=== PATIENT | male | born 1975 | race Caucasian/White ===

== ENCOUNTER 2017-02-18 01:15 | Emergency (ER) | payer SELFPAY ==
[2017-02-18 01:49] VITALS: RESP 17; TEMP 98.4; O2SAT 99
[2017-02-18] MEDS ORDERED: Albuterol-Ipratrop 3 mg / 0.5 (3 ml) UD IH STA (01:55)
--- NOTE | 2017-02-18 01:57 | ED PDOC ---
Arrival/HPI - General Time Seen by Provider: 02/18/17 01:51 Historian: Patient - History of Present Illness Narrative History of Present Illness (Text): 02/18/17 01:54 Iain Olmos is a 41 year old male, whose past medical history include asthma and hypertension, who presents to the Emergency department complaining of shortness of breath since yesterday. Patient states he had 2 nebulizer treatments at home with minimal relief. Patient notes symptoms are consistent with previous episodes of asthma. Patient denies any fever, chills, chest pain, nausea, vomiting, diarrhea, urinary symptoms, back pain, neck pain, headache, dizziness, or any other complaints. Time/Duration: Other (yesterday) Symptom Onset: Gradual Symptom Course: Unchanged Activities at Onset: Light Context: Home Past Medical History - Provider Review Nursing Documentation Reviewed: Yes - Infectious Disease Hx of Infectious Diseases: None - Cardiac Hx Cardiac Disorders: Yes Hx Hypertension: Yes - Psychiatric Hx Substance Use: No Family/Social History - Physician Review Nursing Documentation Reviewed: Yes Family/Social History: Unknown Family HX Smoking Status: Never Smoked Hx Alcohol Use: No Hx Substance Use: No Allergies/Home Meds Allergies/Adverse Reactions: Allergies No Known Allergies Allergy (Verified 02/18/17 01:38) Review of Systems - Physician Review All systems were reviewed & negative as marked: Yes - Review of Systems Constitutional: Normal. absent: Fevers Eyes: Normal ENT: Normal Respiratory: SOB. absent: Cough Cardiovascular: Normal. absent: Chest Pain Gastrointestinal: Normal. absent: Abdominal Pain, Diarrhea, Nausea, Vomiting Genitourinary Male: Normal. absent: Dysuria, Frequency, Hematuria, Urinary Output Changes Musculoskeletal: Normal. absent: Back Pain, Neck Pain Skin: Normal. absent: Rash Neurological: Normal. absent: Headache, Dizziness Endocrine: Normal Hemo/Lymphatic: Normal Psychiatric: Normal Physical Exam Vital Signs Reviewed: Yes Vital Signs Temp Pulse Resp BP Pulse Ox 02/18/17 03:43 68 17 122/76 99 02/18/17 01:48 98.4 F 88 17 154/92 H 99 Temperature: Afebrile Blood Pressure: Normal Pulse: Regular Respiratory Rate: Normal Appearance: Positive for: Well-Appearing, Non-Toxic, Comfortable Pain Distress: None Mental Status: Positive for: Alert and Oriented X 3 - Systems Exam Head: Present: Atraumatic, Normocephalic Pupils: Present: PERRL Extroacular Muscles: Present: EOMI Conjunctiva: Present: Normal Mouth: Present: Moist Mucous Membranes Neck: Present: Normal Range of Motion Respiratory/Chest: Present: Wheezes. No: Respiratory Distress, Accessory Muscle Use Cardiovascular: Present: Regular Rate and Rhythm, Normal S1, S2. No: Murmurs Abdomen: Present: Normal Bowel Sounds. No: Tenderness, Distention, Peritoneal Signs Back: Present: Normal Inspection Upper Extremity: Present: Normal Inspection. No: Cyanosis, Edema Lower Extremity: Present: Normal Inspection. No: Edema Neurological: Present: GCS=15, CN II-XII Intact, Speech Normal Skin: Present: Warm, Dry, Normal Color. No: Rashes Psychiatric: Present: Alert, Oriented x 3, Normal Insight, Normal Concentration Medical Decision Making ED Course and Treatment: 02/18/17 01:54 Impression: 41 year old male complaining of shortness of breath since yesterday. Differential Diagnosis included but are not limited to: asthma Plan: -- Duoneb -- Solu-medrol -- Reassess and disposition Progress Notes: 02/18/17 02:53 Pt states he felt itchy after receiving Solu-medrol. Benadryl ordered. 02/18/17 03:30 On re-evaluation, pt states he feel 100% better following medication, states his symptoms have resolved. Patient in agreement with plan to be discharged home. Patient is stable for discharge. Patient was instructed to follow up with physician or return if symptoms worsen or new concerning symptoms arise. - Medication Orders Current Medication Orders: Discontinued Medications Albuterol/Ipratropium (Duoneb 3 Mg/0.5 Mg (3 Ml) Ud) 3 ml IH ONCE STA Stop: 02/18/17 01:56 Last Admin: 02/18/17 02:21 Dose: 3 ml Diphenhydramine HCl (Benadryl) 25 mg IVP ONCE ONE Stop: 02/18/17 02:54 Last Admin: 02/18/17 02:57 Dose: 25 mg IVP Administration Document 02/18/17 02:57 CNR (Rec: 02/18/17 02:57 CNR [id number]) Charges for Administration # of IVP Administrations 1 Methylprednisolone (Solu-Medrol) 125 mg IVP ONCE ONE Stop: 01/14/18 01:56 Last Admin: 02/18/17 02:21 Dose: 125 mg IVP Administration Document 02/18/17 02:21 CNR (Rec: 02/18/17 02:21 CNR [id number]) Charges for Administration # of IVP Administrations 1 - Scribe Statement The provider has reviewed the documentation as recorded by the Karen Valiente Provider Scribe Attestation: All medical record entries made by the Scribe were at my direction and personally dictated by me. I have reviewed the chart and agree that the record accurately reflects my personal performance of the history, physical exam, medical decision making, and the department course for this patient. I have also personally directed, reviewed, and agree with the discharge instructions and disposition. Disposition/Present on Arrival - Present on Arrival Any Indicators Present on Arrival: No History of DVT/PE: No History of Uncontrolled Diabetes: No Urinary Catheter: No History of Decub. Ulcer: No History Surgical Site Infection Following: None - Disposition Have Diagnosis and Disposition been Completed?: Yes Diagnosis: Asthma exacerbation Disposition: HOME/ ROUTINE Disposition Time: 03:34 Patient Plan: Discharge Condition: GOOD Discharge Instructions (ExitCare): Asthma (ED) Additional Instructions: take meds as prescribed/follow up with your doctor this week Prescriptions: Albuterol/Ipratropium [Duoneb 3 MG/3 Ml-0.5 MG/3 Ml 3 Ml] 3 ml IH Q4 PRN #24 neb PRN Reason: Wheezing Albuterol HFA [Ventolin HFA 90 mcg/actuation (8 g)] 2 puff IH [id number] PRN #1 puff PRN Reason: Wheezing Forms: [facility] (Iranian)
[2017-02-18] MEDS ORDERED: DiphenhydrAMINE 50 mg/ml Inj IVP ONE (02:53)
[2017-02-18 03:44] VITALS: BP 122/76; PULSE 68
--- NOTE | 2017-02-18 20:47 | CARD ---
APPROVED REPORT EKG Measurement Heart [id number] <Conclusion> Normal sinus rhythm Normal ECG
== END 2017-02-18 03:47 | disposition home or self-care (01) ==
LOC: ED 01:15
DX: J45.901 Unspecified asthma with (acute) exacerbation (principal)
CPT/HCPCS: 93005; 96374; 96375; 99283; J1200; J2930

== ENCOUNTER 2017-03-05 18:33 | Emergency (ER) | payer OTHER ==
[2017-03-05 18:45] VITALS: BMI 29.6
[2017-03-05 18:49] VITALS: BP 150/97; PULSE 99; RESP 16; TEMP 98.3; O2SAT 98
--- NOTE | 2017-03-05 19:24 | ED PDOC ---
Arrival/HPI - General Chief Complaint: Shortness Of Breath Time Seen by Provider: 03/05/17 19:11 Historian: Patient - History of Present Illness Narrative History of Present Illness (Text): 03/05/17 19:15 Iain Olmos is a 41 year old male, whose past medical history includes Asthma and hypertension, who presents to the emergency department complaining of wheezing and chest congestion for several days. Patient notes that he takes albuterol and uses a nebulizer at home. Patient denies any coughs, nausea, vomiting, diarrhea, leg swelling, recent travels, or any other complaints at this time. PMD: None Time/Duration: < week Symptom Onset: Gradual Symptom Course: Unchanged Severity Level: Mild Activities at Onset: Light Context: Home Past Medical History - Provider Review Nursing Documentation Reviewed: Yes - Infectious Disease Hx of Infectious Diseases: None - Cardiac Hx Cardiac Disorders: Yes Hx Hypertension: Yes - Pulmonary Hx Respiratory Disorders: Yes Hx Asthma: Yes - Neurological Hx Neurological Disorder: No - HEENT Hx HEENT Disorder: No - Renal Hx Renal Disorder: No - Endocrine/Metabolic Hx Endocrine Disorders: No - Hematological/Oncological Hx Blood Disorders: No - Integumentary Hx Dermatological Disorder: No - Musculoskeletal/Rheumatological Hx Musculoskeletal Disorders: No - Gastrointestinal Hx Gastrointestinal Disorders: No - Genitourinary/Gynecological Hx Genitourinary Disorders: No - Psychiatric Hx Psychophysiologic Disorder: No Hx Substance Use: No Family/Social History - Physician Review Nursing Documentation Reviewed: Yes Family/Social History: No Known Family HX Smoking Status: Never Smoked Hx Alcohol Use: Yes Frequency of alcohol use: Socially Hx Substance Use: No Allergies/Home Meds Allergies/Adverse Reactions: Allergies No Known Allergies Allergy (Verified 03/05/17 18:45) Review of Systems - Physician Review All systems were reviewed & negative as marked: Yes - Review of Systems Constitutional: absent: Fevers, Night Sweats Eyes: absent: Vision Changes ENT: Sinus Congestion. absent: Hearing Changes Respiratory: Wheezing. absent: SOB, Cough Cardiovascular: absent: Chest Pain Gastrointestinal: absent: Abdominal Pain Genitourinary Male: absent: Dysuria, Frequency Musculoskeletal: absent: Arthralgias, Back Pain Skin: absent: Rash, Pruritis Neurological: absent: Headache, Dizziness Endocrine: absent: Diaphoresis Hemo/Lymphatic: absent: Adenopathy Psychiatric: absent: Anxiety, Depression Physical Exam Vital Signs Reviewed: Yes Vital Signs Temp Pulse Resp BP Pulse Ox 03/05/17 19:08 98 03/05/17 18:49 98.3 F 99 H 16 150/97 H 98 03/05/17 18:45 98.2 F Temperature: Afebrile Blood Pressure: Normal Pulse: Regular Respiratory Rate: Normal Appearance: Positive for: Well-Appearing, Non-Toxic, Comfortable Pain Distress: None Mental Status: Positive for: Alert and Oriented X 3 - Systems Exam Head: Present: Atraumatic, Normocephalic Pupils: Present: PERRL Extroacular Muscles: Present: EOMI Conjunctiva: Present: Normal Mouth: Present: Moist Mucous Membranes Neck: Present: Normal Range of Motion Respiratory/Chest: Present: Clear to Auscultation, Good Air Exchange. No: Respiratory Distress, Accessory Muscle Use Cardiovascular: Present: Regular Rate and Rhythm, Normal S1, S2. No: Murmurs Abdomen: Present: Normal Bowel Sounds. No: Tenderness, Distention, Peritoneal Signs Back: Present: Normal Inspection Upper Extremity: Present: Normal Inspection. No: Cyanosis, Edema Lower Extremity: Present: Normal Inspection. No: Edema Neurological: Present: GCS=15, CN II-XII Intact, Speech Normal Skin: Present: Warm, Dry, Normal Color. No: Rashes Psychiatric: Present: Alert, Oriented x 3, Normal Insight, Normal Concentration Medical Decision Making ED Course and Treatment: 03/05/17 19:25 Impression: 41 year old male complaining of wheezing and chest congestion for several days. Differential Diagnosis included but are not limited to: Asthma, Bronchitis Plan: -- Chest X-ray -- Duoneb and Prednisone -- Reassess and disposition Prior Visits: Notes and results from previous visits were reviewed. Patient was last seen in the emergency department on 02/18/17 for shortness of breath. Patient was discharged home. Progress Notes: Patient improved with treatment and no longer had symptoms. He was discharged home with PMD f/u and advised to return to the ED if symptoms worsen or any other concern. - Lab Interpretations Lab Results: Lab Results 03/05/17 19:25: Influenza Typ A,B (EIA) Negative for flu a/b - RAD Interpretation Radiology Orders: 03/05/17 19:20 CXR (PA/LAT) [CHEST TWO VIEWS (PA/LAT)] [RAD] Stat - Medication Orders Current Medication Orders: Discontinued Medications Albuterol/Ipratropium (Duoneb 3 Mg/0.5 Mg (3 Ml) Ud) 3 ml IH Q15M MERVIN Stop: 03/05/17 20:01 Last Admin: 03/05/17 19:55 Dose: 3 ml Prednisone (Prednisone Tab) 60 mg PO STAT STA Stop: 03/05/17 19:21 Last Admin: 03/05/17 19:32 Dose: 60 mg - Scribe Statement The provider has reviewed the documentation as recorded by the Karen Love Provider Scribe Attestation: All medical record entries made by the Omairaibedinson were at my direction and personally dictated by me. I have reviewed the chart and agree that the record accurately reflects my personal performance of the history, physical exam, medical decision making, and the department course for this patient. I have also personally directed, reviewed, and agree with the discharge instructions and disposition. Disposition/Present on Arrival - Present on Arrival Any Indicators Present on Arrival: No History of DVT/PE: No History of Uncontrolled Diabetes: No Urinary Catheter: No History of Decub. Ulcer: No History Surgical Site Infection Following: None - Disposition Have Diagnosis and Disposition been Completed?: Yes Diagnosis: Asthma, URI (upper respiratory infection) Disposition: HOME/ ROUTINE Disposition Time: 21:16 Patient Plan: Discharge Condition: IMPROVED Discharge Instructions (ExitCare): Asthma (ED), Upper Respiratory Infection (ED ) Additional Instructions: Mr Olmos, thank you for letting us take care of you today. Your provider was Dr. Castro. You were treated for URI, Asthma. The emergency medical care you received today was directed at your acute symptoms. If you were prescribed any medication, please fill it and take as directed. It may take several days for your symptoms to resolve. Return to the Emergency Department if your symptoms worsen, do not improve, or if you have any other problems. Please contact your doctor or call one of the physicians/clinics you have been referred to that are listed on the Patient Visit Information form that is included in your discharge packet. Bring any paperwork you were given at discharge with you along with any medications you are taking to your follow up visit. Our treatment cannot replace ongoing medical care by a primary care provider (PCP) outside of the emergency department. Thank you for allowing the [facility] team to be part of your care today. If you had an X-Ray or CT scan: A Radiologist will review the ED reading if any change in treatment is needed we will contact you. If you had a blood, urine, or wound culture: It will take several days for the results, if any change in treatment is needed we will contact you. If you had an STI test: It will take 48 hours for the results. Please call after 1 week if you have not heard back. Prescriptions: Albuterol HFA [Ventolin HFA 90 mcg/actuation (8 g)] 2 puff IH Q4 #1 puff predniSONE [predniSONE Tab] 40 mg PO DAILY #8 tab Referrals: [facility] at [facility] [place] [Outside] - Follow up with primary Forms: [facility] (Faroese), WORK NOTE
[2017-03-05] MEDS: Albuterol-Ipratrop 3 mg / 0.5 (3 ml) UD IH SCH ×3 (19:25→19:55)
--- NOTE | 2017-03-06 08:19 | RAD ---
HISTORY: cough r/o pna COMPARISON: No prior. TECHNIQUE: Chest PA and lateral FINDINGS: LUNGS: No active pulmonary disease. PLEURA: No significant pleural effusion identified. No pneumothorax apparent. CARDIOVASCULAR: Normal. OSSEOUS STRUCTURES: No significant abnormalities. VISUALIZED UPPER ABDOMEN: Normal. OTHER FINDINGS: None. IMPRESSION: No active disease.
--- NOTE | 2017-03-06 10:59 | CARD ---
APPROVED REPORT EKG Measurement Heart [id number] [id number] <Conclusion> Normal sinus rhythm Normal ECG
== END 2017-03-05 21:16 | disposition home or self-care (01) ==
LOC: ED 18:33
DX: J45.909 Unspecified asthma, uncomplicated (principal); J06.9 Acute upper respiratory infection, unspecified

== ENCOUNTER 2017-03-31 19:15 | Emergency (ER) | payer SELFPAY ==
[2017-03-31 19:16] VITALS: BMI 29.6
[2017-03-31 19:28] VITALS: RESP 18; TEMP 97.9; O2SAT 100
--- NOTE | 2017-03-31 19:37 | ED PDOC ---
Arrival/HPI - General Chief Complaint: Shortness Of Breath Time Seen by Provider: 03/31/17 19:28 Historian: Patient - History of Present Illness Narrative History of Present Illness (Text): 03/31/17 19:34 42 year old male, with past medical history of hypertension and asthma, presents to the Emergency department complaining of intermittent shortness of breath for past two weeks. Patient informs associated right-sided chest discomfort. Patient informs similar symptoms in the past two months and requests medical attention. Patient denies blood thinner and smoking. Patient denies any fever, chills, nausea, vomiting, abdominal pain or any other complaints. Time/Duration: > week Symptom Onset: Gradual Symptom Course: Unchanged Quality: Tightness Activities at Onset: Light Context: Home Past Medical History - Provider Review Nursing Documentation Reviewed: Yes - Infectious Disease Hx of Infectious Diseases: None - Cardiac Hx Cardiac Disorders: Yes Hx Hypertension: Yes - Pulmonary Hx Respiratory Disorders: Yes Hx Asthma: Yes - Neurological Hx Neurological Disorder: No - HEENT Hx HEENT Disorder: No - Renal Hx Renal Disorder: No - Endocrine/Metabolic Hx Endocrine Disorders: No - Hematological/Oncological Hx Blood Disorders: No - Integumentary Hx Dermatological Disorder: No - Musculoskeletal/Rheumatological Hx Musculoskeletal Disorders: No - Gastrointestinal Hx Gastrointestinal Disorders: No - Genitourinary/Gynecological Hx Genitourinary Disorders: No - Psychiatric Hx Psychophysiologic Disorder: No Hx Substance Use: No - Anesthesia Hx Anesthesia: No Family/Social History - Physician Review Nursing Documentation Reviewed: Yes Family/Social History: No Known Family HX Smoking Status: Never Smoked Hx Alcohol Use: Yes Hx Substance Use: No Allergies/Home Meds Allergies/Adverse Reactions: Allergies No Known Allergies Allergy (Verified 03/31/17 19:25) Review of Systems - Physician Review All systems were reviewed & negative as marked: Yes - Review of Systems Constitutional: Normal. absent: Fevers Eyes: Normal ENT: Normal Respiratory: SOB Cardiovascular: Chest Pain Gastrointestinal: Normal. absent: Abdominal Pain, Diarrhea, Nausea, Vomiting Genitourinary Male: Normal Musculoskeletal: Normal Skin: Normal Neurological: Normal Endocrine: Normal Hemo/Lymphatic: Normal Psychiatric: Normal Physical Exam Vital Signs Reviewed: Yes Vital Signs Temp Pulse Resp BP Pulse Ox 03/31/17 19:27 18 100 03/31/17 19:26 97.9 F 93 H 18 147/91 H 100 Temperature: Afebrile Blood Pressure: Hypertensive Pulse: Regular Respiratory Rate: Normal Appearance: Positive for: Well-Appearing, Non-Toxic, Comfortable Pain Distress: None Mental Status: Positive for: Alert and Oriented X 3 - Systems Exam Head: Present: Atraumatic, Normocephalic Pupils: Present: PERRL Extroacular Muscles: Present: EOMI Conjunctiva: Present: Normal Mouth: Present: Moist Mucous Membranes Neck: Present: Normal Range of Motion Respiratory/Chest: Present: Clear to Auscultation, Good Air Exchange, Other ( reproducible right upper chest wall discomfort.). No: Respiratory Distress, Accessory Muscle Use Cardiovascular: Present: Regular Rate and Rhythm, Normal S1, S2. No: Murmurs Abdomen: Present: Normal Bowel Sounds. No: Tenderness, Distention, Peritoneal Signs Back: Present: Normal Inspection Upper Extremity: Present: Normal Inspection. No: Cyanosis, Edema Lower Extremity: Present: Normal Inspection. No: Edema Neurological: Present: GCS=15, CN II-XII Intact, Speech Normal Skin: Present: Warm, Dry, Normal Color. No: Rashes Psychiatric: Present: Alert, Oriented x 3, Normal Insight, Normal Concentration Medical Decision Making ED Course and Treatment: 03/31/17 19:39 Impression: 42 year old male presents to the Emergency department for shortness of breath and right chest discomfort. Plan: -- EKG -- Labs -- Chest X-ray -- Reassess and disposition Progress Notes: 03/31/17 20:04 Chest X-ray reviewed, shows no infiltrate, no effusion. Clear. 03/31/17 21:28 pain free; all studies neg. Stable for discharge. - Lab Interpretations Lab Results: 03/31/17 19:45 03/31/17 19:45 Lab Results 03/31/17 19:45: Sodium 139, Potassium 3.5 L, Chloride 98, Carbon Dioxide 28, Anion Gap 16, BUN 15, Creatinine 0.9, Est GFR ( Amer) > 60, Est GFR (Non- Af Amer) > 60, Random Glucose 100, Calcium 9.8, Total Bilirubin 0.4, AST 31, ALT 26, Alkaline Phosphatase 67, Troponin I < 0.01, Total Protein 7.1, Albumin 4.1, Globulin 3.0, Albumin/Globulin Ratio 1.4 03/31/17 19:45: D-Dimer, Quantitative < 200 03/31/17 19:45: WBC 8.0, RBC 4.92, Hgb 14.1, Hct 42.3, MCV 86.0, MCH 28.7, MCHC 33.3, RDW 12.3, Plt Count 309, MPV 9.3, Gran % 53.6, Lymph % (Auto) 36.5 H, [place] % (Auto) 8.0 H, Eos % (Auto) 1.6, Baso % (Auto) 0.3, Gran # 4.28, Lymph # ( Auto) 2.9, [place] # (Auto) 0.6, Eos # (Auto) 0.1, Baso # (Auto) 0.02 - RAD Interpretation Radiology Orders: 03/31/17 19:33 CHEST PORTABLE [RAD] Stat [employer] Chair: ED Physician - Scribe Statement The provider has reviewed the documentation as recorded by the Scribe Rubina Nugent. All medical record entries made by the Scribe were at my direction and personally dictated by me. I have reviewed the chart and agree that the record accurately reflects my personal performance of the history, physical exam, medical decision making, and the department course for this patient. I have also personally directed, reviewed, and agree with the discharge instructions and disposition. Disposition/Present on Arrival - Present on Arrival Any Indicators Present on Arrival: No History of DVT/PE: No History of Uncontrolled Diabetes: No Urinary Catheter: No History of Decub. Ulcer: No History Surgical Site Infection Following: None - Disposition Have Diagnosis and Disposition been Completed?: Yes Diagnosis: Chest wall pain Disposition: HOME/ ROUTINE Disposition Time: 21:30 Patient Plan: Discharge Condition: STABLE Discharge Instructions (ExitCare): Chest Pain That Is Not Caused by the Heart ( DC) Referrals: PCP,NO [Primary Care Provider] - Follow up with primary Forms: [facility] (Armenian)
[2017-03-31 20:19] LABS: BASO # 0.02 K/mm3 (0.0-2.0); BASO % 0.3 % (0.0-3.0); EOS # 0.1 (0.0-0.7); EOS % 1.6 % (1.5-5.0); GRAN # 4.28 (1.4-6.5); GRAN % 53.6 % (50.0-68.0); HEMOGLOBIN 14.1 g/dL (14.0-18.0); LYMPH # 2.9 (1.2-3.4); LYMPH % 36.5 % (22.0-35.0); MEAN CORPUSCULAR HEMOGLOBIN 28.7 pg (25.0-35.0); MEAN CORPUSCULAR HGB CONC 33.3 g/dl (31.0-37.0); MEAN PLATELET VOLUME 9.3 fl (7.0-11.0); MONO # 0.6 (0.1-0.6); RBC 4.92 10^6/uL (3.5-6.1); RED CELL DISTRIBUTION WIDTH 12.3 % (11.5-14.5)
[2017-03-31 20:30] LABS: TROPONIN I < 0.01 ng/mL
[2017-03-31 20:58] LABS: ALB/GLOB RATIO 1.4 (1.1-1.8); ALBUMIN 4.1 g/dL (3.0-4.8); ALT/SGPT 26 U/L (7-56); AST/SGOT 31 U/L (17-59); BLOOD UREA NITROGEN 15 mg/dL (7-21); CALCIUM 9.8 mg/dL (8.4-10.5); GFR AFRICAN-AMERICAN > 60; GFR NON-AFRICAN AMERICAN > 60
[2017-03-31 21:33] VITALS: BP 137/88; PULSE 85
--- NOTE | 2017-04-01 09:00 | RAD ---
HISTORY: Chest pain COMPARISON: 03/05/2017. FINDINGS: LUNGS: The lungs are clear. PLEURA: No significant pleural effusion identified, no pneumothorax apparent. CARDIOVASCULAR: Normal. OSSEOUS STRUCTURES: No significant abnormalities. VISUALIZED UPPER ABDOMEN: Normal. OTHER FINDINGS: None. IMPRESSION: No active pulmonary disease.
--- NOTE | 2017-04-01 14:59 | CARD ---
APPROVED REPORT EKG Measurement Heart [id number] <Conclusion> Normal sinus rhythm Normal ECG
== END 2017-03-31 21:35 | disposition home or self-care (01) ==
LOC: ED 19:15
DX: R07.89 Other chest pain (principal); I10 Essential (primary) hypertension

== ENCOUNTER 2017-04-13 20:34 | Observation (INO) | payer OTHER ==
--- NOTE | 2017-04-13 21:08 | ED PDOC ---
Arrival/HPI - General Chief Complaint: Chest Pain Time Seen by Provider: 04/13/17 21:03 Historian: Patient - History of Present Illness Narrative History of Present Illness (Text): 04/13/17 21:05 Iain Olmos is a 42 year old male, whose past medical history includes asthma and hypertension, presents to the emergency department complaining of chest pain. He reports that at 4pm today he had acute onset of chest pressure. He reports that it was different than his asthma tightness and instead felt "like someone was sitting on my chest." Reports remote hx of numbness in hands. Patient denies any fever, chills, shortness of breath, nausea, vomiting, diarrhea, neck pain, headache, dizziness, or any other complaints. 04/13/17 21:54 Time/Duration: < week (2 days) Symptom Onset: Gradual Symptom Course: Unchanged Activities at Onset: Light Context: Home Past Medical History - Provider Review Nursing Documentation Reviewed: Yes - Infectious Disease Hx of Infectious Diseases: None - Cardiac Hx Cardiac Disorders: Yes Hx Hypertension: Yes - Pulmonary Hx Respiratory Disorders: Yes Hx Asthma: Yes - Neurological Hx Neurological Disorder: No - HEENT Hx HEENT Disorder: No - Renal Hx Renal Disorder: No - Endocrine/Metabolic Hx Endocrine Disorders: No - Hematological/Oncological Hx Blood Disorders: No - Integumentary Hx Dermatological Disorder: No - Musculoskeletal/Rheumatological Hx Musculoskeletal Disorders: No - Gastrointestinal Hx Gastrointestinal Disorders: No - Genitourinary/Gynecological Hx Genitourinary Disorders: No - Psychiatric Hx Psychophysiologic Disorder: No Hx Substance Use: No - Anesthesia Hx Anesthesia: No Family/Social History - Physician Review Nursing Documentation Reviewed: Yes Family/Social History: Unknown Family HX Smoking Status: Never Smoked Hx Alcohol Use: Yes Hx Substance Use: No Allergies/Home Meds Allergies/Adverse Reactions: Allergies No Known Allergies Allergy (Verified 03/31/17 19:25) Home Medications: Home Meds Medication Instructions Recorded Confirmed Olmesartan/Hydrochlorothiazide 1 tab PO DAILY 04/13/17 04/13/17 [Benicar Hct 40-12.5 mg Tablet] Review of Systems - Physician Review All systems were reviewed & negative as marked: Yes - Review of Systems Constitutional: Normal Eyes: Normal ENT: Normal Respiratory: Normal. absent: SOB, Cough Cardiovascular: Chest Pain Gastrointestinal: Normal. absent: Abdominal Pain, Diarrhea, Nausea, Vomiting Genitourinary Male: Normal. absent: Dysuria, Frequency, Hematuria, Urinary Output Changes Musculoskeletal: absent: Neck Pain Skin: Normal. absent: Rash Neurological: absent: Headache, Dizziness, Gait Changes Endocrine: Normal Hemo/Lymphatic: Normal Psychiatric: Normal Physical Exam - Physical Exam Narrative Physical Exam (Text): 04/13/17 21:08 Constitutional: No acute distress. Head: Normocephalic. Atraumatic. Eyes: PERRL. ENT: Moist mucous membranes. Neck: Supple. Cardiovascular: Regular rate. Chest: no chest tenderness. Respiratory: Clear to auscultation bilaterally. GI: Soft. Nontender. Nondistended. Back: No CVA tenderness. Musculoskeletal: No tenderness or swelling of extremities. Normal ROM. Skin: No rash. Neurologic: Alert, no focal deficit. 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 Risk factors include htn. Plan: -- Chest X-ray -- Cardiac Enzymes -- D-Dimer -- Labs -- Duoneb -- Aspirin -- Reassess and disposition Prior Visits: Notes and results from previous visits were reviewed. Patient was last seen in the emergency department on 03/31/17 for shortness of breath. Pt was discharged. Progress Notes: EKG reviewed, shows NSR at 93 bpm. NST/T wave changes. 04/13/17 21:55 D-dimer negative. Trop negative. Observation for chest pain under hospitalist. - Lab Interpretations Lab Results: 04/13/17 21:00 04/13/17 21:00 Lab Results 04/13/17 21:00: Sodium 140, Potassium 3.4 L, Chloride 100, Carbon Dioxide 30, Anion Gap 14, BUN 20, Creatinine 1.0, Est GFR ( Amer) > 60, Est GFR (Non- Af Amer) > 60, Random Glucose 102, Calcium 9.8, Total Bilirubin 0.4, AST 39, ALT 37, Alkaline Phosphatase 71, Total Creatine Kinase 169, Troponin I < 0.01, NT-Pro-B Natriuret Pep < 11.1, Total Protein 7.3, Albumin 4.2, Globulin 3.1, Albumin/Globulin Ratio 1.4 04/13/17 21:00: D-Dimer, Quantitative < 200 04/13/17 21:00: WBC 9.0, RBC 4.93, Hgb 14.1, Hct 42.4, MCV 86.0, MCH 28.6, MCHC 33.3, RDW 12.5, Plt Count 319, MPV 9.3, Gran % 57.3, Lymph % (Auto) 34.0, Ashley % (Auto) 7.6 H, Eos % (Auto) 1.0 L, Baso % (Auto) 0.1, Gran # 5.14, Lymph # ( Auto) 3.1, Ashley # (Auto) 0.7 H, Eos # (Auto) 0.1, Baso # (Auto) 0.01 - RAD Interpretation Radiology Orders: 04/13/17 21:04 CHEST PORTABLE [RAD] Stat - Medication Orders Current Medication Orders: Discontinued Medications Albuterol/Ipratropium (Duoneb 3 Mg/0.5 Mg (3 Ml) Ud) 3 ml IH Q15M MERVIN Stop: 04/13/17 21:46 Last Admin: 04/13/17 21:30 Dose: 3 ml Aspirin (Aspirin Chewable) 324 mg PO STAT STA Stop: 04/13/17 21:05 Last Admin: 04/13/17 21:38 Dose: 324 mg - Scribe Statement The provider has reviewed the documentation as recorded by the Omairaibedinson Pagan All medical record entries made by the Karen were at my direction and personally dictated by me. I have reviewed the chart and agree that the record accurately reflects my personal performance of the history, physical exam, medical decision making, and the department course for this patient. I have also personally directed, reviewed, and agree with the discharge instructions and disposition. Disposition/Present on Arrival - Present on Arrival Any Indicators Present on Arrival: No History of DVT/PE: No History of Uncontrolled Diabetes: No Urinary Catheter: No History of Decub. Ulcer: No History Surgical Site Infection Following: None - Disposition Have Diagnosis and Disposition been Completed?: Yes Diagnosis: Chest pain Disposition: HOSPITALIZED Disposition Time: 21:56 Patient Plan: Observation Patient Problems: Current Active Problems Problem Status Onset Chest pain Acute Condition: FAIR Discharge Instructions (ExitCare): Chest Pain (ED) Referrals: Zaki Lu, [Primary Care Provider] - Follow up with primary Forms: [facility] ([place])
[2017-04-13 21:14] LABS: BASO # 0.01 K/mm3 (0.0-2.0); BASO % 0.1 % (0.0-3.0); EOS # 0.1 (0.0-0.7); GRAN # 5.14 (1.4-6.5); GRAN % 57.3 % (50.0-68.0); HEMOGLOBIN 14.1 g/dL (14.0-18.0); LYMPH # 3.1 (1.2-3.4); MEAN CORPUSCULAR HEMOGLOBIN 28.6 pg (25.0-35.0); MEAN CORPUSCULAR HGB CONC 33.3 g/dl (31.0-37.0); MEAN PLATELET VOLUME 9.3 fl (7.0-11.0); MONO # 0.7 (0.1-0.6); MONO % 7.6 % (1.0-6.0); RBC 4.93 10^6/uL (3.5-6.1); RED CELL DISTRIBUTION WIDTH 12.5 % (11.5-14.5)
[2017-04-13] MEDS: Albuterol-Ipratrop 3 mg / 0.5 (3 ml) UD IH SCH ×2 (21:15→21:30)
[2017-04-13 21:45] LABS: ALB/GLOB RATIO 1.4 (1.1-1.8); ALBUMIN 4.2 g/dL (3.0-4.8); ALT/SGPT 37 U/L (7-56); AST/SGOT 39 U/L (17-59); BLOOD UREA NITROGEN 20 mg/dL (7-21); CALCIUM 9.8 mg/dL (8.4-10.5); GFR AFRICAN-AMERICAN > 60; GFR NON-AFRICAN AMERICAN > 60
[2017-04-13 21:55] LABS: TROPONIN I < 0.01 ng/mL
[2017-04-13 21:56] LABS: B-TYPE NATRIURETIC PEPTIDE < 11.1 pg/mL (0-450)
[2017-04-13 22:23] VITALS: O2SAT 99
[2017-04-13] MEDS ORDERED: Potassium Chloride 20 mEq ER Tab PO STA (22:39)
[2017-04-13] MEDS ORDERED: Albuterol 0.083% Inhal Sol (2.5 mg/3 mL) UD IH PRN (22:44)
[2017-04-13 23:28] LABS: HDL CHOLESTEROL 39 mg/dL (29-60)
[2017-04-13 23:39] LABS: LDL CHOLESTEROL 90 mg/dL (0-129)
[2017-04-14 01:09] VITALS: BMI 32.1
--- NOTE | 2017-04-14 02:20 | CP.PCM.HP ---
History of Present Illness - History of Present Illness History of Present Illness: CC; Chest pain, numbness and tingling HPI: 42 M with a past medical history of HTN and asthma presented to [facility] ED with complaints of intermittent chest pains unrelated to exertion. Pt stated that his symptoms began approximately 3 weeks ago where sharp stabbing substernal chest pain would present and would last for a few minutes, without any triggers or exacerbating factors. The pain did not radiate. Pt noted that lying flat would at times alleviate his chest pain. His pain is not reproducible upon palpation. Pt admits to poor diet. He denied any recent unusual stressors. Pt denied any sour taste in the back of his mouth. Pt also has complaints of numbness/tingling in his fingers and toes that recently began within the past few days. He denied any recent trauma. Patient denies any fever , chills, shortness of breath, nausea, vomiting, diarrhea, neck pain, headache, dizziness, or any other complaints. 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 in [place], [place] last seen 6 mo ago no change in meds Present on Admission - Present on Admission Any Indicators Present on Admission: No Review of Systems - Review of Systems Review of Systems: as per HPI otherwise negative Past Patient History - Infectious Disease Hx of Infectious Diseases: None - Past Social History Smoking Status: Former Smoker - CARDIAC Hx Cardiac Disorders: Yes Hx Hypertension: Yes - PULMONARY Hx Respiratory Disorders: Yes Hx Asthma: Yes - NEUROLOGICAL Hx Neurological Disorder: No - HEENT Hx HEENT Problems: No - RENAL Hx Chronic Kidney Disease: No - ENDOCRINE/METABOLIC Hx Endocrine Disorders: No - HEMATOLOGICAL/ONCOLOGICAL Hx Blood Disorders: No - INTEGUMENTARY Hx Dermatological Problems: No - MUSCULOSKELETAL/RHEUMATOLOGICAL Hx Falls: No - GASTROINTESTINAL Hx Gastrointestinal Disorders: No - GENITOURINARY/GYNECOLOGICAL Hx Genitourinary Disorders: No - PSYCHIATRIC Hx Psychophysiologic Disorder: No Hx Substance Use: No - SURGICAL HISTORY Hx Surgeries: No - ANESTHESIA Hx Anesthesia: No Meds Allergies/Adverse Reactions: Allergies Allergy/AdvReac Type Severity Reaction Status Date / Time No Known Allergies Allergy Verified 03/31/17 19:25 Physical Exam - Constitutional Appears: No Acute Distress - Head Exam Head Exam: ATRAUMATIC, NORMAL INSPECTION, NORMOCEPHALIC - Eye Exam Eye Exam: EOMI, Normal appearance, PERRL Pupil Exam: NORMAL ACCOMODATION, PERRL - ENT Exam ENT Exam: Mucous Membranes Moist, Normal Exam - Respiratory Exam Respiratory Exam: Clear to Auscultation Bilateral, NORMAL BREATHING PATTERN - Cardiovascular Exam Cardiovascular Exam: REGULAR RHYTHM, +S1, +S2 - GI/Abdominal Exam GI & Abdominal Exam: Normal Bowel Sounds, Soft. absent: Tenderness - Extremities Exam Extremities exam: Positive for: normal inspection - Back Exam Back exam: NORMAL INSPECTION - Neurological Exam Neurological exam: Alert, CN II-XII Intact, Normal Gait, Oriented x3, Reflexes Normal - Psychiatric Exam Psychiatric exam: Normal Affect, Normal Mood - Skin Skin Exam: Dry, Intact, Normal Color, Warm Results - Vital Signs Recent Vital Signs: Last Vital Signs Temp 98.2 F 04/14/17 00:56 Pulse 99 H 04/14/17 00:56 Resp 18 04/14/17 00:56 BP 148/93 H 04/14/17 00:56 Pulse Ox 99 04/13/17 22:22 - Labs Result Diagrams: 04/13/17 21:00 04/13/17 21:00 Labs: Laboratory Results - last 24 hr 04/13/17 04/13/17 23:00 23:00 Triglycerides 149 Cholesterol 151 LDL Cholesterol Direct 90 HDL Cholesterol 39 TSH 3rd Generation 3.90 Assessment & Plan - Assessment and Plan (Free Text) Assessment: 42 M with a past medical history of HTN and asthma presented to [facility] ED with complaints of intermittent chest pains, admitted to [facility] for observation to rule out ACS. Chest pain r/o ACS vs GERD vs msk asa in ED motrin prn pain trop negative x1, continue to trend EKG demonstrated NSR without ST changes, Serial EKGs lipid panel tsh Echo Cardiology Consulted Dr. Ansari HTN stable continue home meds continue to monitor Asthma Duonebs prn currently stable Hypokalemia supplemented continue to monitor and replete as needed GI ppx pepcid DVT ppx ambulatory SCDs Seen reviewed and discussed with Dr. Nehemias Pandey
[2017-04-14 07:11] LABS: BASO # 0.02 K/mm3 (0.0-2.0); BASO % 0.2 % (0.0-3.0); EOS # 0.1 (0.0-0.7); EOS % 0.8 % (1.5-5.0); GRAN # 5.07 (1.4-6.5); GRAN % 59.9 % (50.0-68.0); HEMOGLOBIN 14.4 g/dL (14.0-18.0); LYMPH # 2.5 (1.2-3.4); MEAN CELL VOLUME 86.6 fl (80.0-105.0); MEAN CORPUSCULAR HEMOGLOBIN 28.8 pg (25.0-35.0); MEAN CORPUSCULAR HGB CONC 33.3 g/dl (31.0-37.0); MEAN PLATELET VOLUME 9.4 fl (7.0-11.0); MONO # 0.8 (0.1-0.6); MONO % 9.1 % (1.0-6.0); RED CELL DISTRIBUTION WIDTH 12.7 % (11.5-14.5); WHITE BLOOD COUNT 8.5 10^3/ul (4.5-11.0)
[2017-04-14 07:29] LABS: ALB/GLOB RATIO 1.3 (1.1-1.8); ALBUMIN 4.1 g/dL (3.0-4.8); ALT/SGPT 41 U/L (7-56); AST/SGOT 35 U/L (17-59); BLOOD UREA NITROGEN 18 mg/dL (7-21); CALCIUM 9.8 mg/dL (8.4-10.5); GFR AFRICAN-AMERICAN > 60; GFR NON-AFRICAN AMERICAN > 60
[2017-04-14 07:42] LABS: TROPONIN I < 0.01 ng/mL
[2017-04-14] MEDS: Albuterol-Ipratrop 3 mg / 0.5 (3 ml) UD IH SCH ×3 (07:49→15:33)
--- NOTE | 2017-04-14 09:53 | RAD ---
HISTORY: Pleuritic chest pain. COMPARISON: 03/31/2017 FINDINGS: LUNGS: No active pulmonary disease. PLEURA: No significant pleural effusion identified, no pneumothorax apparent. CARDIOVASCULAR: No radiographic findings to suggest acute or significant cardiovascular disease. OSSEOUS STRUCTURES: No significant abnormalities. VISUALIZED UPPER ABDOMEN: Normal. OTHER FINDINGS: None. IMPRESSION: No active disease. No significant interval change compared to the prior examination(s).
--- NOTE | 2017-04-14 11:10 | CP.PCM.DIS ---
<Narinder Moraes - Last Filed: 04/14/17 14:41> Provider - Provider Date of Admission: 04/13/17 21:58 Attending physician: Jacklyn Bruner MD Primary care physician: Zaki Profile Required Consults: Cardio: Elan Time Spent in preparation of Discharge (in minutes): 25 Diagnosis - Discharge Diagnosis (1) HTN (hypertension) Status: Chronic Priority: High (2) Asthma Status: Chronic Priority: Medium (3) Chest pain Status: Resolved Priority: High Hospital Course - Lab Results Lab Results: Most Recent Lab Values WBC 8.5 10^3/ul (4.5-11.0) 04/14/17 06:30 RBC 5.00 10^6/uL (3.5-6.1) 04/14/17 06:30 Hgb 14.4 g/dL (14.0-18.0) 04/14/17 06:30 Hct 43.3 % (42.0-52.0) 04/14/17 06:30 MCV 86.6 fl (80.0-105.0) 04/14/17 06:30 MCH 28.8 pg (25.0-35.0) 04/14/17 06:30 MCHC 33.3 g/dl (31.0-37.0) 04/14/17 06:30 RDW 12.7 % (11.5-14.5) 04/14/17 06:30 Plt Count 316 10^3/uL (120.0-450.0) 04/14/17 06:30 MPV 9.4 fl (7.0-11.0) 04/14/17 06:30 Gran % 59.9 % (50.0-68.0) 04/14/17 06:30 Lymph % (Auto) 30.0 % (22.0-35.0) 04/14/17 06:30 Sevier % (Auto) 9.1 % (1.0-6.0) H 04/14/17 06:30 Eos % (Auto) 0.8 % (1.5-5.0) L 04/14/17 06:30 Baso % (Auto) 0.2 % (0.0-3.0) 04/14/17 06:30 Gran # 5.07 (1.4-6.5) 04/14/17 06:30 Lymph # (Auto) 2.5 (1.2-3.4) 04/14/17 06:30 Sevier # (Auto) 0.8 (0.1-0.6) H 04/14/17 06:30 Eos # (Auto) 0.1 (0.0-0.7) 04/14/17 06:30 Baso # (Auto) 0.02 K/mm3 (0.0-2.0) 04/14/17 06:30 D-Dimer, Quantitative < 200 ng/mL (0-243) 04/13/17 21:00 Sodium 139 mmol/L (132-148) 04/14/17 06:30 Potassium 3.9 mmol/L (3.6-5.0) 04/14/17 06:30 Chloride 100 mmol/L (98-107) 04/14/17 06:30 Carbon Dioxide 29 mmol/L (21-33) 04/14/17 06:30 Anion Gap 13 (10-20) 04/14/17 06:30 BUN 18 mg/dL (7-21) 04/14/17 06:30 Creatinine 0.9 mg/dl (0.8-1.5) 04/14/17 06:30 Est GFR ( Amer) > 60 04/14/17 06:30 Est GFR (Non-Af Amer) > 60 04/14/17 06:30 Random Glucose 99 mg/dL (70-110) 04/14/17 06:30 Calcium 9.8 mg/dL (8.4-10.5) 04/14/17 06:30 Total Bilirubin 0.7 mg/dL (0.2-1.3) 04/14/17 06:30 AST 35 U/L (17-59) 04/14/17 06:30 ALT 41 U/L (7-56) 04/14/17 06:30 Alkaline Phosphatase 64 U/L (38-126) 04/14/17 06:30 Total Creatine Kinase 169 U/L (35-230) 04/13/17 21:00 Troponin I < 0.01 ng/mL 04/14/17 06:30 NT-Pro-B Natriuret Pep < 11.1 pg/mL (0-450) 04/13/17 21:00 Total Protein 7.1 g/dL (5.8-8.3) 04/14/17 06:30 Albumin 4.1 g/dL (3.0-4.8) 04/14/17 06:30 Globulin 3.0 gm/dL 04/14/17 06:30 Albumin/Globulin Ratio 1.3 (1.1-1.8) 04/14/17 06:30 Triglycerides 149 mg/dL (35-160) 04/13/17 23:00 Cholesterol 151 mg/dL (130-200) 04/13/17 23:00 LDL Cholesterol Direct 90 mg/dL (0-129) 04/13/17 23:00 HDL Cholesterol 39 mg/dL (29-60) 04/13/17 23:00 TSH 3rd Generation 3.90 mIU/mL (0.46-4.68) 04/13/17 23:00 - Hospital Course Hospital Course: This is a 42 yo M with PMH of HTN and asthma presented to [facility] ED with complaints of intermittent, non-reproducible chest pains unrelated to exertion. Pt stated that his symptoms began approximately 3 weeks ago where sharp stabbing substernal chest pain would present and would last for a few minutes, without any triggers or exacerbating factors. The pain did not radiate. Pt noted that lying flat would at times alleviate his chest pain, but denies any other alleviating factors. 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 Today, he reports relief of all symptoms, and denies any current symptoms, including chest pain, shortness of breath, nausea, or emesis. All troponins have been negative, his EKG was unremarkable, and he was cleared by Cardiology to be discharged. An echo was obtained, pending official read, and patient can follow up with Cardio as an outpatient for the results. Patient was instructed to resume all home medications, to establish himself with a PMD and/or follow up at the [facility] at [facility] within 1 week of discharge (Card for clinic provided). He expressed understanding and agreement with these instructions, and had no further questions, so he was discharged home. Patient seen, reviewed, and discussed with attending, Dr. Wagoner. Discharge Exam - Head Exam Head Exam: ATRAUMATIC, NORMAL INSPECTION, NORMOCEPHALIC - Eye Exam Eye Exam: EOMI, Normal appearance. absent: Conjunctival injection, Scleral icterus Pupil Exam: absent: Irregular, Unequal - ENT Exam ENT Exam: Mucous Membranes Moist - Neck Exam Neck exam: Full Rom - Respiratory Exam Respiratory Exam: Clear to PA & Lateral, NORMAL BREATHING PATTERN, UNREMARKABLE. absent: Accessory Muscle Use, Chest Wall Tenderness, Decreased Breath Sounds, Rales, Rhonchi, Wheezes, Respiratory Distress - Cardiovascular Exam Cardiovascular Exam: REGULAR RHYTHM, RRR, +S1, +S2. absent: Bradycardia, Tachycardia, Irregular Rhythm, JVD, +S4 - GI/Abdominal Exam GI & Abdominal Exam: Normal Bowel Sounds, Soft, Unremarkable. absent: Firm, Guarding, Rebound, Rigid, Tenderness - Extremities Exam Additional comments: normal inspection, no pitting edema or tenderness bilaterally, no gross asymmetry of bilateral LE - Neurological Exam Neurological exam: Alert, Oriented x3 - Psychiatric Exam Psychiatric exam: Normal Affect, Normal Mood - Skin Skin Exam: Dry, Intact, Normal Color, Warm Discharge Plan - Follow Up Plan Condition: FAIR Disposition: HOME/ ROUTINE Additional Instructions: Please resume all home medications and take as previously prescribed. Please establish yourself and followup with a PMD within 1 week of discharge, or follow up at the [facility] clinic in the hospital in 1 week. outpatient stress test per PMD. Please return to the hospital if you experience new or concerning symptoms. Referrals: Zaki Lu, [Primary Care Provider] - [facility] at [facility] [Outside] <Jody Wagoner - Last Filed: 04/14/17 15:22> Provider - Provider Date of Admission: 04/13/17 21:58 Attending physician: Jacklyn Bruner MD Primary care physician: Zaki Jean Required Hospital Course - Lab Results Lab Results: Most Recent Lab Values WBC 8.5 10^3/ul (4.5-11.0) 04/14/17 06:30 RBC 5.00 10^6/uL (3.5-6.1) 04/14/17 06:30 Hgb 14.4 g/dL (14.0-18.0) 04/14/17 06:30 Hct 43.3 % (42.0-52.0) 04/14/17 06:30 MCV 86.6 fl (80.0-105.0) 04/14/17 06:30 MCH 28.8 pg (25.0-35.0) 04/14/17 06:30 MCHC 33.3 g/dl (31.0-37.0) 04/14/17 06:30 RDW 12.7 % (11.5-14.5) 04/14/17 06:30 Plt Count 316 10^3/uL (120.0-450.0) 04/14/17 06:30 MPV 9.4 fl (7.0-11.0) 04/14/17 06:30 Gran % 59.9 % (50.0-68.0) 04/14/17 06:30 Lymph % (Auto) 30.0 % (22.0-35.0) 04/14/17 06:30 Sevier % (Auto) 9.1 % (1.0-6.0) H 04/14/17 06:30 Eos % (Auto) 0.8 % (1.5-5.0) L 04/14/17 06:30 Baso % (Auto) 0.2 % (0.0-3.0) 04/14/17 06:30 Gran # 5.07 (1.4-6.5) 04/14/17 06:30 Lymph # (Auto) 2.5 (1.2-3.4) 04/14/17 06:30 Sevier # (Auto) 0.8 (0.1-0.6) H 04/14/17 06:30 Eos # (Auto) 0.1 (0.0-0.7) 04/14/17 06:30 Baso # (Auto) 0.02 K/mm3 (0.0-2.0) 04/14/17 06:30 D-Dimer, Quantitative < 200 ng/mL (0-243) 04/13/17 21:00 Sodium 139 mmol/L (132-148) 04/14/17 06:30 Potassium 3.9 mmol/L (3.6-5.0) 04/14/17 06:30 Chloride 100 mmol/L (98-107) 04/14/17 06:30 Carbon Dioxide 29 mmol/L (21-33) 04/14/17 06:30 Anion Gap 13 (10-20) 04/14/17 06:30 BUN 18 mg/dL (7-21) 04/14/17 06:30 Creatinine 0.9 mg/dl (0.8-1.5) 04/14/17 06:30 Est GFR ( Amer) > 60 04/14/17 06:30 Est GFR (Non-Af Amer) > 60 04/14/17 06:30 Random Glucose 99 mg/dL (70-110) 04/14/17 06:30 Calcium 9.8 mg/dL (8.4-10.5) 04/14/17 06:30 Total Bilirubin 0.7 mg/dL (0.2-1.3) 04/14/17 06:30 AST 35 U/L (17-59) 04/14/17 06:30 ALT 41 U/L (7-56) 04/14/17 06:30 Alkaline Phosphatase 64 U/L (38-126) 04/14/17 06:30 Total Creatine Kinase 169 U/L (35-230) 04/13/17 21:00 Troponin I < 0.01 ng/mL 04/14/17 13:20 NT-Pro-B Natriuret Pep < 11.1 pg/mL (0-450) 04/13/17 21:00 Total Protein 7.1 g/dL (5.8-8.3) 04/14/17 06:30 Albumin 4.1 g/dL (3.0-4.8) 04/14/17 06:30 Globulin 3.0 gm/dL 04/14/17 06:30 Albumin/Globulin Ratio 1.3 (1.1-1.8) 04/14/17 06:30 Triglycerides 149 mg/dL (35-160) 04/13/17 23:00 Cholesterol 151 mg/dL (130-200) 04/13/17 23:00 LDL Cholesterol Direct 90 mg/dL (0-129) 04/13/17 23:00 HDL Cholesterol 39 mg/dL (29-60) 04/13/17 23:00 TSH 3rd Generation 3.90 mIU/mL (0.46-4.68) 04/13/17 23:00 Attending/Attestation - Attestation I have personally seen and examined this patient.: Yes I have fully participated in the care of the patient.: Yes I have reviewed all pertinent clinical information, including history, physical exam and plan: Yes Notes (Text): 04/14/17 15:20 attending note; Patient seen and examined with resident. Patient was also seen by Dr. Dietz finish repairer. Patient is a 42-year-old male admitted with substernal chest pain. EKG normal. Cardiac enzymes negative. Echocardiogram prelim normal. Case discussed with finish repairer in detail. Patient can be discharged home. Outpatient stress test per PMD as needed. Aspirin when necessary. Continue hypertension medication. Patient will follow up with PMD Dr. heredia. [facility] clinic information was also given.
[2017-04-14 12:23] VITALS: BP 134/78; RESP 20; TEMP 98.7
[2017-04-14 15:58] VITALS: PULSE 83
--- NOTE | 2017-04-14 16:26 | CARD ---
APPROVED REPORT EXAM: Two-dimensional and M-mode echocardiogram with Doppler and color Doppler. INDICATION 2D DIMENSIONS Left Atrium (2D)3.3 (1.6-4.0cm)IVSd0.9 (0.7-1.1cm) LVDd4.1 (3.9-5.9cm)PWd0.8 (0.7-1.1cm) LVDs2.8 (2.5-4.0cm)FS (%) 31.0 % LVEF (%)59.2 (>50%) M-Mode DIMENSIONS Aortic Root3.10 (2.2-3.7cm)Aortic Cusp Exc.1.90 (1.5-2.0cm) Aortic Valve AoV Peak Dztxjozb738.0cm/Rafa Peak GR.7mmHg Mitral Valve MV E Hhrtxqpv75.0cm/sMV A Ykopfecx19.0cm/sE/A ratio1.4 TDI Lateral E' Peak V17.80cm/sMedial E' Peak V7.02cm/sE/Lateral E'3.9 E/Medial E'9.8 Tricuspid Valve TR Peak Ixvbtpaf127iw/sRAP [id number] Peak Gr.22mmHg [id number] LEFT VENTRICLE The left ventricle is normal size. There is normal left ventricular wall thickness. The left ventricular function is normal. The left ventricular ejection fraction is within the normal range. There is normal LV segmental wall motion. The left ventricular diastolic function is normal. RIGHT VENTRICLE The right ventricle is normal size. There is normal right ventricular wall thickness. The right ventricular systolic function is normal. ATRIA The left atrium size is normal. The right atrium size is normal. AORTIC VALVE The aortic valve is normal in structure. No aortic regurgitation is present. MITRAL VALVE The mitral valve is normal in structure. There is no mitral valve regurgitation noted. TRICUSPID VALVE The tricuspid valve is normal in structure. There is no tricuspid valve regurgitation noted. GREAT VESSELS The aortic root is normal in size. The IVC is normal in size and collapses >50% with inspiration. <Conclusion> The left ventricle is normal size. There is normal left ventricular wall thickness. The left ventricular function is normal. The left ventricular ejection fraction is within the normal range. There is normal LV segmental wall motion. The left ventricular diastolic function is normal. Consider a small PFO
--- NOTE | 2017-04-14 16:51 | CARD ---
APPROVED REPORT EKG Measurement Heart [id number] <Conclusion> Normal sinus rhythm Normal ECG
--- NOTE | 2017-04-15 01:08 | CON ---
DATE: 04/14/2017 LOCATION: The patient is in room 260, bed 2. This consult is being done on behalf of Dr. Ansari whom I am covering. REASON FOR CONSULTATION: Chest pain. HISTORY OF PRESENT ILLNESS: A 42-year-old male known to have hypertension and asthma, has been getting treatment. He states for the last 2 weeks he is getting off and on sharp chest pain mostly over the chest. He states it is a stabbing type of pain, got worse by deep inspiration, has no relation to exertion. Pain is intermittent, lasting and while I was examining the patient, he states he does not have any chest pain now, even on deep inspiration. Pain has improved. Patient lying flat in bed without chest pain, shortness of breath, palpitation. PAST MEDICAL HISTORY: Positive for hypertension and asthma. SOCIAL HISTORY: Denies smoking. Denies any drugs. ALLERGIES: DENIES ANY ALLERGIES. FAMILY HISTORY: Positive for diabetes and hypertension. MEDICATIONS: Patient is on Benicar 40/12.5 mg daily and Ventolin. REVIEW OF SYSTEMS: All the systems are reviewed. Positive mentioned in the history, otherwise negative. PHYSICAL EXAMINATION: VITAL SIGNS: Blood pressure 134/78, respirations 20, pulse 95, temperature 98.7. HEENT: Head is normocephalic. Eyes: Pupils normal. Conjunctivae normal. Nose and throat normal. NECK: JVP low. Carotids are equal. THORAX: AP diameter normal. LUNGS: Clear. CARDIOVASCULAR: S1 and S2. ABDOMEN: Soft, nontender. No organomegaly. Bowel sounds normal. EXTREMITIES: No clubbing. No cyanosis. LABORATORY DATA: WBC 8.5, hemoglobin 14.4, hematocrit 43.3, platelet 316. Sodium 139, potassium 3.9, BUN 18, creatinine 0.9, troponin x3 negative. TSH 3.90. Triglyceride 149, cholesterol 151, LDL 90, HDL 39. DIAGNOSTIC DATA: EKG showed regular sinus rhythm. Chest x-ray, no acute disease. DIAGNOSES: Chest pain, atypical pain, mostly musculoskeletal, it was only on deep inspiration and now it was sharp and it was also a time of pain. He states he had this local tenderness as well, but no other pain, pain has resolved; hypertension; history of asthma. PLAN: Patient is going to have echo today and patient is advised to have a nuclear stress test as outpatient although patient's chest pain is a musculoskeletal type and has totally relieved. Patient and understand the plan and we will follow. Jacklyn Dietz MD
== END 2017-04-14 16:54 | disposition home or self-care (01) ==
LOC: ED 20:34 → ERH 21:58 → 2RNO 23:48
PROVIDERS: ADMIT Internal Medicine; ATTEND Internal Medicine
DX: R07.89 Other chest pain (principal); E87.6 Hypokalemia; I10 Essential (primary) hypertension; J45.909 Unspecified asthma, uncomplicated; Z87.891 Personal history of nicotine dependence; Z82.49 Family history of ischemic heart disease and other diseases of the circulatory system; Z83.3 Family history of diabetes mellitus
CPT/HCPCS: 36415; 71045; 80053; 80061; 82550; 83036; 83880; 84443; 84484; 85025; 85378; 93005; 93306; 94640; 99285; G0378

== ENCOUNTER 2017-04-23 14:24 | Emergency (ER) | payer MEDICAID, OTHER ==
[2017-04-23 14:25] VITALS: BMI 32.1
[2017-04-23 14:42] VITALS: TEMP 99.5
--- NOTE | 2017-04-23 15:06 | ED PDOC ---
Arrival/HPI - General Chief Complaint: Back Pain Time Seen by Provider: 04/23/17 14:34 Historian: Patient, Spouse - History of Present Illness Narrative History of Present Illness (Text): 04/23/17 14:58 Pt is a 42 year old male with a PMH of chest pain and HTN who was admitted 04/13 for CARDS workup s/p severw chest pain, presents today for severe low back and neck pain x 2 days, rated 8/10. He describes the pain as starting in the neck and low back and referring down the left arm and left foot causing a tingling and burning sensation. Pt reports positional association; LBP worse on standing, and left hand while sleeping with head rotated to the right. Denies headache, chest pain, shortness of breath, trauma or previous episode. Pt does not have a PCP and only has [facility]. Pt continues to take medication for his blood pressure as prescribed. 04/24/17 21:08 Time/Duration: < week Symptom Onset: Sudden Symptom Course: Unchanged Quality: Pressure Severity Level: 8 Activities at Onset: Sleeping Context: Standing, Walking, Home Past Medical History - Provider Review Nursing Documentation Reviewed: Yes - Travel History Have you recently traveled outside [place] w/in the past 3 mons?: No - Infectious Disease Hx of Infectious Diseases: None - Cardiac Hx Cardiac Disorders: Yes Hx Hypertension: Yes - Pulmonary Hx Respiratory Disorders: Yes Hx Asthma: Yes - Neurological Hx Neurological Disorder: No - HEENT Hx HEENT Disorder: No - Renal Hx Renal Disorder: No - Endocrine/Metabolic Hx Endocrine Disorders: No - Hematological/Oncological Hx Blood Disorders: No - Integumentary Hx Dermatological Disorder: No - Musculoskeletal/Rheumatological Hx Falls: No - Gastrointestinal Hx Gastrointestinal Disorders: No - Genitourinary/Gynecological Hx Genitourinary Disorders: No - Psychiatric Hx Psychophysiologic Disorder: No Hx Substance Use: No - Anesthesia Hx Anesthesia: No Family/Social History - Physician Review Nursing Documentation Reviewed: Yes Family/Social History: Unknown Family HX Smoking Status: Former Smoker Hx Alcohol Use: Yes Hx Substance Use: No Allergies/Home Meds Allergies/Adverse Reactions: Allergies No Known Allergies Allergy (Verified 04/23/17 14:42) Home Medications: Home Meds Medication Instructions Recorded Confirmed Olmesartan/Hydrochlorothiazide 1 tab PO DAILY 04/13/17 04/23/17 [Benicar Hct 40-12.5 mg Tablet] Review of Systems - Physician Review All systems were reviewed & negative as marked: Yes - Review of Systems Constitutional: Normal Eyes: Normal ENT: Normal Respiratory: Normal Cardiovascular: Normal Gastrointestinal: Normal Genitourinary Male: Normal Musculoskeletal: Back Pain, Neck Pain Skin: Normal Neurological: Normal Endocrine: Normal Hemo/Lymphatic: Normal Psychiatric: Normal Physical Exam Vital Signs Reviewed: Yes Vital Signs Temp Pulse Resp BP Pulse Ox 04/23/17 16:35 90 17 135/87 100 04/23/17 14:37 99.5 F 102 H 18 134/91 H 98 Temperature: Afebrile Blood Pressure: Normal Pulse: Tachycardic Respiratory Rate: Normal Appearance: Positive for: Well-Appearing, Non-Toxic, Comfortable Pain Distress: Moderate Mental Status: Positive for: Alert and Oriented X 3 - Systems Exam Head: Present: Atraumatic, Normocephalic Extroacular Muscles: Present: EOMI Conjunctiva: Present: Normal Neck: Present: Normal Range of Motion Respiratory/Chest: Present: Clear to Auscultation, Good Air Exchange. No: Respiratory Distress, Accessory Muscle Use Cardiovascular: Present: Regular Rate and Rhythm, Normal S1, S2. No: Murmurs Abdomen: Present: Normal Bowel Sounds. No: Tenderness, Distention, Peritoneal Signs Back: Present: Normal Inspection, Paraspinal Tenderness (especially on the right side) Upper Extremity: Present: Normal Inspection, Normal ROM, NORMAL PULSES, Tenderness (right paraspinal mm), Neurovascularly Intact. No: Cyanosis, Edema, Swelling, Erythema, Temperature Abnormalties, Capillary Refill < 2s, Deformity, Norm 2-Pt Discrimination, Other Lower Extremity: Present: Normal Inspection, NORMAL PULSES, Normal ROM, Tenderness (right SIJ pain, L5-S1), Neurovascularly Intact. No: Edema, CALF TENDERNESS, Cyanosis, Anai's Sign, Swelling, Erythema, Deformity, Temperature Abnormalties, Capillary Refill < 2 s, Other Neurological: Present: GCS=15, CN II-XII Intact, Speech Normal, Motor Func Grossly Intact, Normal Sensory Function, Norm Deep Tendon Reflexes, Gait Normal. No: Normal Cerebellar Funct, Memory Normal, Normal 2Pt Descrimination, Other Skin: Present: Warm, Dry, Normal Color. No: Rashes Psychiatric: Present: Alert, Oriented x 3, Normal Insight, Normal Concentration Medical Decision Making ED Course and Treatment: 04/23/17 15:06 Impression Pt is a 42 year old male with a PMH of chest pain and HTN who was admitted 04/13 for CARDS workup s/p sever CP, presents today for severe low back and neck pain x 2 days, rated 8/10. 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 Was given Naprosyn previously but has not taken it for fear of side effects Plan pain management assess and dispo Progress Note No indication for doing plain film, likely will benefit from MRI to assess soft tissue changes Toradol 15mg IM and Gabapentin 300 mg PO STAT to address musculoskeletal pain and radiculopathy Discussed need for Primary care doctor and referral to Pain management clinic or orthopedist Pt stable and comfortable; ambulated well out of the ED - Medication Orders Current Medication Orders: Discontinued Medications Gabapentin (Neurontin) 300 mg PO STAT ONE PRN Reason: Protocol Stop: 04/23/17 15:31 Last Admin: 04/23/17 15:46 Dose: 300 mg Ketorolac Tromethamine (Toradol) 15 mg IM STAT STA Stop: 04/23/17 15:21 Last Admin: 04/23/17 15:46 Dose: 15 mg MAR Pain Assessment Document 04/23/17 15:46 SF (Rec: 04/23/17 15:46 SF [id number]) Pain Reassessment Is this a pain reassessment? Yes Sleep Is patient sleeping during reassessment? No Presence of Pain Presence of Pain Yes Pain Scale Used Pain Scale Used Numeric IM Administration Charges Document 04/23/17 15:46 SF (Rec: 04/23/17 15:46 SF [id number]) Injection Site MAR Injection Site Left Deltoid Charges for Administration # of IM Administrations 1 Disposition/Present on Arrival - Present on Arrival Any Indicators Present on Arrival: Yes History of DVT/PE: No History of Uncontrolled Diabetes: No Urinary Catheter: No History of Decub. Ulcer: No History Surgical Site Infection Following: None - Disposition Have Diagnosis and Disposition been Completed?: Yes Diagnosis: Low back pain, Cervicalgia, Cervical radiculopathy, Lumbar radiculopathy Disposition: HOME/ ROUTINE Disposition Time: 16:28 Patient Plan: Discharge Condition: GOOD Discharge Instructions (ExitCare): Low Back Pain in Adults, Generalized Neck Pain (DC) Additional Instructions: Dear Iain, You have been assessed for low back and neck pain that can be best treated with non steroidal anti-inflammatories such as Advil, Motrin, or Naprosyn. Gabapentin is recommended for naturopathic pain that will relieve the burning and help you sleep comfortably. If you experience any alarming symptoms over the next 24 hours, return to the emergency department, otherwise please see a provider at [facility] or the painting contractor recommended. Please use caution and care when taking gabapentin as it can make you drowsy. Consider light physical activity and gentle stretching daily to help with your pain. All the best in your recovery! Recommendation for Pain Management: Dr. [facility] [address] , [place] [address] Prescriptions: Gabapentin [Gralise] 300 mg PO TID 5 Days #15 tab.er.24h Referrals: Fidel Rodas MD [Staff Provider] - Follow up with primary Forms: [employer] ([place])
[2017-04-23 17:05] VITALS: BP 135/87; PULSE 90; RESP 17; O2SAT 100
== END 2017-04-23 16:35 | disposition home or self-care (01) ==
LOC: ED 14:24
DX: M54.12 Radiculopathy, cervical region (principal); M54.16 Radiculopathy, lumbar region; M54.5 Low back pain; M54.2 Cervicalgia; I10 Essential (primary) hypertension; Z87.891 Personal history of nicotine dependence
CPT/HCPCS: 96372; 99284; J1885

== ENCOUNTER 2017-04-23 21:18 | Emergency (ER) | payer MEDICAID, OTHER ==
[2017-04-23 21:29] VITALS: RESP 18
[2017-04-23 21:52] VITALS: BMI 31.0
--- NOTE | 2017-04-23 21:56 | ED PDOC ---
Arrival/HPI - General Time Seen by Provider: 04/23/17 21:39 Historian: Patient - History of Present Illness Narrative History of Present Illness (Text): 04/23/17 21:57 A 42 year old male, whose past medical history includes chest pain and hypertension, admitted 04/13/17 for CARDS workup s/p severe chest pain, presents to the emergency department complaining of worsening asthma and right sided chest pressure. Patient reports his asthma has been acting up. Reports he used his nebulizer treatment before he came in. Patient reported to the emergency department today for severe low back and neck pain. Patient denies any other complaints at this time. Symptom Onset: Sudden Symptom Course: Unchanged Activities at Onset: Rest Context: Home Past Medical History - Provider Review Nursing Documentation Reviewed: Yes - Infectious Disease Hx of Infectious Diseases: None - Cardiac Hx Cardiac Disorders: Yes Hx Hypertension: Yes - Pulmonary Hx Respiratory Disorders: Yes Hx Asthma: Yes - Neurological Hx Neurological Disorder: No - HEENT Hx HEENT Disorder: No - Renal Hx Renal Disorder: No - Endocrine/Metabolic Hx Endocrine Disorders: No - Hematological/Oncological Hx Blood Disorders: No - Integumentary Hx Dermatological Disorder: No - Musculoskeletal/Rheumatological Hx Falls: No - Gastrointestinal Hx Gastrointestinal Disorders: No - Genitourinary/Gynecological Hx Genitourinary Disorders: No - Psychiatric Hx Psychophysiologic Disorder: No Hx Substance Use: No - Anesthesia Hx Anesthesia: No Family/Social History - Physician Review Nursing Documentation Reviewed: Yes Family/Social History: No Known Family HX Smoking Status: Former Smoker Hx Alcohol Use: Yes Hx Substance Use: No Allergies/Home Meds Allergies/Adverse Reactions: Allergies No Known Allergies Allergy (Verified 04/23/17 14:42) Home Medications: Home Meds Medication Instructions Recorded Confirmed Olmesartan/Hydrochlorothiazide 1 tab PO DAILY 04/13/17 04/23/17 [Benicar Hct 40-12.5 mg Tablet] Review of Systems - Physician Review All systems were reviewed & negative as marked: Yes - Review of Systems Constitutional: absent: Fevers Respiratory: Other (worsening asthma) Cardiovascular: Other (right sided chest pressure) Physical Exam Vital Signs Reviewed: Yes Vital Signs Temp Pulse Resp BP Pulse Ox 04/24/17 03:29 96 H 18 141/87 98 04/24/17 00:51 98.5 F 87 18 136/89 98 03/19/18 23:20 19 97 04/23/17 21:28 98.1 F 87 18 160/100 H 95 Temperature: Afebrile Blood Pressure: Hypertensive Pulse: Regular Respiratory Rate: Normal Appearance: Positive for: Well-Appearing, Non-Toxic, Comfortable Pain Distress: None Mental Status: Positive for: Alert and Oriented X 3 - Systems Exam Head: Present: Atraumatic, Normocephalic Pupils: Present: PERRL Extroacular Muscles: Present: EOMI Conjunctiva: Present: Normal Mouth: Present: Moist Mucous Membranes Neck: Present: Normal Range of Motion Respiratory/Chest: Present: Clear to Auscultation, Good Air Exchange. No: Respiratory Distress, Accessory Muscle Use, Wheezes Cardiovascular: Present: Regular Rate and Rhythm, Normal S1, S2. No: Murmurs Abdomen: Present: Normal Bowel Sounds. No: Tenderness, Distention, Peritoneal Signs Back: Present: Normal Inspection Upper Extremity: Present: Normal Inspection. No: Cyanosis, Edema Lower Extremity: Present: Normal Inspection. No: Edema Neurological: Present: GCS=15, CN II-XII Intact, Speech Normal Skin: Present: Warm, Dry, Normal Color. No: Rashes Psychiatric: Present: Alert, Oriented x 3, Normal Insight, Normal Concentration Medical Decision Making ED Course and Treatment: 04/23/17 21:53 Impression: A 42 year old male with worsening asthma and right sided chest pressure. Plan: -- Chest X-ray -- labs -- Albuterol, Duoneb, Solumedrol -- Reassess and disposition Prior Visits: Notes and results from previous visits were reviewed. Patient was last seen in the emergency department today for low back and neck pain. Progress Notes: 04/24/17 00:04 Chest X-ray- No active disease, as read by me. CT Chest With Intravenous Contrast FINDINGS: LIMITATIONS: Mild streak/motion artifact. PULMONARY ARTERIES: Exam is somewhat limited for the detection of pulmonary emboli secondary to motion artifact. Allowing for this, no definite pulmonary emboli are seen. AORTA: No evidence of aortic dissection. LUNGS: No evidence of significant focal consolidation/infiltrate in the lungs. No evidence of diffuse pulmonary vascular congestion. PLEURAL SPACE: No pneumothorax or pleural effusions seen. HEART: Heart appears mildly enlarged. No evidence of significant pericardial effusion. BONES/JOINTS: No acute bony abnormality identified. SOFT TISSUES: No acute abnormality of the visualized soft tissues seen. LYMPH NODES: No evidence of diffuse lymphadenopathy. IMPRESSION: - No evidence of pulmonary embolism or other significant acute abnormality in the chest. - See above for remaining findings. Dictated and Authenticated by: Cecile Davis MD 04/24/2017 4:14 AM Eastern Time ([place] & [place]) 04/24/17 04:24 On re-evaluation, patient feels better and is in no acute distress. I have discussed the results and plan with the patient, who expresses understanding. Patient in agreement with plan to be discharged home. Patient is stable for discharge. Patient was instructed to follow up with physician or return if symptoms worsen or new concerning symptoms arise. - Lab Interpretations Lab Results: 04/23/17 22:20 04/23/17 22:20 Lab Results 04/24/17 02:16: pO2 73 H, VBG pH 7.39, VBG pCO2 42.0, VBG HCO3 25.4, VBG Total CO2 26.7, VBG O2 Sat (Calc) 98.2 H, VBG Base Excess 0.3, VBG Potassium 4.4, Glucose 160 H, Lactate 2.0, FiO2 21.0, Sodium 139.0, Chloride 108.0 H, Venous Blood Potassium 4.4 04/23/17 22:20: Sodium 140, Potassium 3.8, Chloride 98, Carbon Dioxide 30, Anion Gap 16, BUN 14, Creatinine 0.9, Est GFR ( Amer) > 60, Est GFR (Non- Af Amer) > 60, Random Glucose 95, Calcium 10.0, Total Bilirubin 0.4, AST 29, ALT 32, Alkaline Phosphatase 62, Total Protein 7.2, Albumin 4.1, Globulin 3.1, Albumin/Globulin Ratio 1.3 04/23/17 22:20: WBC 9.0, RBC 5.15, Hgb 14.8, Hct 43.4, MCV 84.3, MCH 28.7, MCHC 34.1, RDW 12.1, Plt Count 308, MPV 9.2, Gran % 60.3, Lymph % (Auto) 31.0, Stephenson % (Auto) 7.2 H, Eos % (Auto) 1.3 L, Baso % (Auto) 0.2, Gran # 5.41, Lymph # ( Auto) 2.8, Stephenson # (Auto) 0.7 H, Eos # (Auto) 0.1, Baso # (Auto) 0.02 I have reviewed the lab results: Yes - RAD Interpretation Radiology Orders: 04/23/17 21:57 CXR [CHEST PORTABLE] [RAD] Stat 04/24/17 00:50 ANGIO CHEST PE PROTOCOL [CT] Stat - Medication Orders Current Medication Orders: Discontinued Medications Albuterol Sulfate (Albuterol 0.083% Inhal Danielle (2.5 Mg/3 Ml) Ud) 5 mg INH STAT STA Stop: 04/23/17 21:58 Last Admin: 04/23/17 22:49 Dose: 5 mg Albuterol/Ipratropium (Duoneb 3 Mg/0.5 Mg (3 Ml) Ud) 3 ml IH STAT STA Stop: 04/23/17 21:58 Last Admin: 04/23/17 22:40 Dose: 3 ml Diphenhydramine HCl (Benadryl) 50 mg IVP STAT STA Stop: 04/23/17 23:35 Last Admin: 04/24/17 00:06 Dose: 50 mg IVP Administration Document 04/24/17 00:06 MR (Rec: 04/24/17 00:06 MR [id number]) Charges for Administration # of IVP Administrations 1 Famotidine (Pepcid) 40 mg IVP STAT STA Stop: 04/23/17 23:35 Last Admin: 04/24/17 00:05 Dose: 40 mg IVP Administration Document 04/24/17 00:05 MR (Rec: 04/24/17 00:06 MR [id number]) Charges for Administration # of IVP Administrations 1 Sodium Chloride (Sodium Chloride 0.9%) 1,000 mls @ 999 mls/hr IV .Q1H1M STA Stop: 04/24/17 00:34 Last Admin: 04/24/17 00:06 Dose: 999 mls/hr eMAR Start Stop Document 04/24/17 00:06 MR (Rec: 04/24/17 00:06 MR [id number]) Intravenous Solution Start Date 04/24/17 Start Time 00:06 End Date 04/24/17 End time 01:06 Total Infusion Time 60 Sodium Chloride (Sodium Chloride 0.9%) 1,000 mls @ 999 mls/hr IV .Q1H1M STA Stop: 04/24/17 01:50 Last Admin: 04/24/17 00:58 Dose: 999 mls/hr eMAR Start Stop Document 04/24/17 00:58 MR (Rec: 04/24/17 00:58 MR [id number]) Intravenous Solution Start Date 04/24/17 Start Time 00:58 End Date 04/24/17 End time 01:58 Total Infusion Time 60 Methylprednisolone (Solu-Medrol) 125 mg IVP STAT STA Stop: 04/23/17 21:58 Last Admin: 04/23/17 22:48 Dose: 125 mg IVP Administration Document 04/23/17 22:48 SRE (Rec: 04/23/17 22:48 SRE [id number]) Charges for Administration # of IVP Administrations 1 - Scribe Statement The provider has reviewed the documentation as recorded by the Karen Scales Provider Scribe Attestation: All medical record entries made by the Scribe were at my direction and personally dictated by me. I have reviewed the chart and agree that the record accurately reflects my personal performance of the history, physical exam, medical decision making, and the department course for this patient. I have also personally directed, reviewed, and agree with the discharge instructions and disposition. Disposition/Present on Arrival - Present on Arrival Any Indicators Present on Arrival: No History of DVT/PE: No History of Uncontrolled Diabetes: No Urinary Catheter: No History Surgical Site Infection Following: None - Disposition Have Diagnosis and Disposition been Completed?: Yes Diagnosis: Asthma Disposition: HOME/ ROUTINE Disposition Time: 04:18 Patient Plan: Discharge Patient Problems: Current Active Problems Problem Status Onset Asthma Chronic Condition: GOOD Discharge Instructions (ExitCare): Asthma, Adult (DC), Medicines for Asthma Additional Instructions: Khalid - Use your medicines as usual. All of your testing was normal. If the rash comes back take over the counter Benadryl. Return to us if worse or new symptoms. Follow up with your doctor next week. [place]- Dr. Russel Trivedi Referrals: [facility], [Primary Care Provider] - Follow up with primary
[2017-04-23] MEDS ORDERED: Albuterol-Ipratrop 3 mg / 0.5 (3 ml) UD IH STA (21:57)
[2017-04-23] MEDS ORDERED: Albuterol 0.083% Inhal Sol (2.5 mg/3 mL) UD INH STA (21:57)
[2017-04-23 22:33] LABS: BASO # 0.02 K/mm3 (0.0-2.0); BASO % 0.2 % (0.0-3.0); EOS # 0.1 (0.0-0.7); EOS % 1.3 % (1.5-5.0); GRAN # 5.41 (1.4-6.5); GRAN % 60.3 % (50.0-68.0); HEMOGLOBIN 14.8 g/dL (14.0-18.0); LYMPH # 2.8 (1.2-3.4); MEAN CELL VOLUME 84.3 fl (80.0-105.0); MEAN CORPUSCULAR HEMOGLOBIN 28.7 pg (25.0-35.0); MEAN CORPUSCULAR HGB CONC 34.1 g/dl (31.0-37.0); MEAN PLATELET VOLUME 9.2 fl (7.0-11.0); MONO # 0.7 (0.1-0.6); MONO % 7.2 % (1.0-6.0); RBC 5.15 10^6/uL (3.5-6.1); RED CELL DISTRIBUTION WIDTH 12.1 % (11.5-14.5)
[2017-04-23 23:01] LABS: ALB/GLOB RATIO 1.3 (1.1-1.8); ALBUMIN 4.1 g/dL (3.0-4.8); ALT/SGPT 32 U/L (7-56); AST/SGOT 29 U/L (17-59); BLOOD UREA NITROGEN 14 mg/dL (7-21); GFR AFRICAN-AMERICAN > 60; GFR NON-AFRICAN AMERICAN > 60
[2017-04-23] MEDS ORDERED: Sodium Chloride 0.9% 1,000 ML IV STA (23:34)
[2017-04-23] MEDS ORDERED: DiphenhydrAMINE 50 mg/ml Inj IVP STA (23:34)
[2017-04-24] MEDS ORDERED: Sodium Chloride 0.9% 1,000 ML IV STA (00:50)
[2017-04-24 00:52] VITALS: TEMP 98.5; O2SAT 98
[2017-04-24 02:44] LABS: VENOUS BLOOD GAS BASE EXCESS 0.3 mmol/L (0.0-2.0); VENOUS BLOOD GAS PO2 73 mm/Hg (30-55); VENOUS BLOOD PH 7.39 (7.32-7.43)
[2017-04-24] MEDS ORDERED: Iodixanol 320 MG/ML 100 ML BOTTLE IV ONE (02:45)
[2017-04-24 03:30] VITALS: BP 141/87; PULSE 96
--- NOTE | 2017-04-24 04:14 | CT ---
EXAM: CT Chest With Intravenous Contrast EXAM DATE/TIME: 04/24/2017 12:50 AM CLINICAL HISTORY: 42 years old, male; Signs and symptoms; Other: Pressure; Additional info: Right sided chest pressure TECHNIQUE: Axial computed tomography images of the chest with intravenous contrast during the arterial phase of enhancement. All CT scans at this facility use one or more dose reduction techniques, viz.: automated exposure control; ma/kV adjustment per patient size (including targeted exams where dose is matched to indication; i.e. head); or iterative reconstruction technique. Coronal reformatted images were created and reviewed. CONTRAST: 96 mL of VISI 320 administered intravenously. COMPARISON: Recent chest radiographs 2017-04-23 23:02 FINDINGS: LIMITATIONS: Mild streak/motion artifact. PULMONARY ARTERIES: Exam is somewhat limited for the detection of pulmonary emboli secondary to motion artifact. Allowing for this, no definite pulmonary emboli are seen. AORTA: No evidence of aortic dissection. LUNGS: No evidence of significant focal consolidation/infiltrate in the lungs. No evidence of diffuse pulmonary vascular congestion. PLEURAL SPACE: No pneumothorax or pleural effusions seen. HEART: Heart appears mildly enlarged. No evidence of significant pericardial effusion. BONES/JOINTS: No acute bony abnormality identified. SOFT TISSUES: No acute abnormality of the visualized soft tissues seen. LYMPH NODES: No evidence of diffuse lymphadenopathy. IMPRESSION: - No evidence of pulmonary embolism or other significant acute abnormality in the chest. - See above for remaining findings.
--- NOTE | 2017-04-24 09:20 | RAD ---
HISTORY: Exacerbation Asthma COMPARISON: 04/13/2017 FINDINGS: LUNGS: No acute pulmonary pathology PLEURA: No significant pleural effusion identified, no pneumothorax apparent. CARDIOVASCULAR: Normal. OSSEOUS STRUCTURES: No significant abnormalities. VISUALIZED UPPER ABDOMEN: Normal. OTHER FINDINGS: None. IMPRESSION: No active disease. No interval change
== END 2017-04-24 04:34 | disposition home or self-care (01) ==
LOC: ED 21:18
DX: J45.909 Unspecified asthma, uncomplicated (principal); I10 Essential (primary) hypertension; Z87.891 Personal history of nicotine dependence
CPT/HCPCS: 71045; 71275; 80053; 82803; 85025; 87040; 96361; 96374; 96375; 99284; J1200; J2930; J7040; Q9967